=== PATIENT | male | born 1985 | race African-American/Black ===

== ENCOUNTER 2017-05-06 20:32 | Emergency (ER) | payer OTHER ==
[~2017-05-06] VITALS: Ht 162.6 cm; Wt 60.0 kg
[2017-05-07 01:48] VITALS: BP 117/75
== END 2017-05-07 03:21 | disposition short-term general hospital (02) ==
LOC: EMS 20:33
DX: S01.111A Laceration without foreign body of right eyelid and periocular area, initial encounter (principal); F17.210 Nicotine dependence, cigarettes, uncomplicated; F12.90 Cannabis use, unspecified, uncomplicated; Y04.2XXA Assault by strike against or bumped into by another person, initial encounter; Y93.89 Activity, other specified; Y92.89 Other specified places as the place of occurrence of the external cause; Y99.8 Other external cause status
CPT/HCPCS: 96372; 99285; J0690

== ENCOUNTER 2022-09-26 11:41 | Emergency (ER) | payer OTHER ==
[~2022-09-26] VITALS: Ht 165.1 cm; Wt 68.2 kg
[2022-09-26 12:02] VITALS: TEMP 98.3
[2022-09-26] MEDS ORDERED: KETOROLAC TROMETHAMINE 60 MG/2 ML VIAL IM ONE (12:30)
[2022-09-26] MEDS ORDERED: CYCLOBENZAPRINE HCL 10 MG TABLET PO ONE (12:30)
[2022-09-26] MEDS ORDERED: HydrOXYzine HCL 25 MG TABLET PO ONE (12:45)
[2022-09-26] MEDS ORDERED: SERTRALINE HCL 50 MG TABLET PO ONE (12:45)
[2022-09-26 13:39] VITALS: BP 145/91; PULSE 90; RESP 18
== END 2022-09-26 14:34 ==
LOC: EMS 11:47
DX: M62.830 Muscle spasm of back (principal); F43.10 Post-traumatic stress disorder, unspecified; M54.9 Dorsalgia, unspecified; F41.9 Anxiety disorder, unspecified; F17.210 Nicotine dependence, cigarettes, uncomplicated; F12.90 Cannabis use, unspecified, uncomplicated
CPT/HCPCS: 99284; 96372; J1885